=== PATIENT | female | born 2000 | race Caucasian/White ===

== ENCOUNTER → 2019-07-21 08:51 | Outpatient (CLI) | payer BC | END | disposition home or self-care (01) | LOC: D.US 08:51 | PROVIDERS: ATTEND Emergency Medicine | DX: E66.9 Obesity, unspecified (principal); R10.11 Right upper quadrant pain ==

== ENCOUNTER → 2019-07-30 14:40 | Outpatient (CLI) | payer BC ==
[2019-07-30 15:13] LABS: HEMATOCRIT 39.7 % (36.0-48.0); HEMOGLOBIN 12.7 g/dL (12-16); MCH 28.8 pg (26.0-34.0); PLATELET COUNT 255 10x3/uL (130-400); RBC 4.41 10x6/uL (4.00-5.40); RDW 14.5 % (11.5-14.5); WBC 6.2 10x3/uL (4.8-10.8)
[2019-07-30 15:56] LABS: EOSINOPHILS 1 % (0-7); LYMPHOCYTES 43 % (15-50); MONOCYTES 4 % (2-11); NEUTROPHILS 51 % (40-80); PLATELET ESTIMATE NORMAL
== END | disposition home or self-care (01) ==
LOC: D.LABREF 14:40
PROVIDERS: ATTEND Legal Medicine
DX: M79.7 Fibromyalgia (principal)

== ENCOUNTER → 2019-10-31 07:13 | Outpatient (CLI) | payer BC | END | disposition home or self-care (01) | LOC: D.NM 07:13 | PROVIDERS: ATTEND Emergency Medicine | DX: R10.9 Unspecified abdominal pain (principal); M79.7 Fibromyalgia; K21.9 Gastro-esophageal reflux disease without esophagitis; F32.9 Major depressive disorder, single episode, unspecified; E66.9 Obesity, unspecified; M06.9 Rheumatoid arthritis, unspecified; E53.8 Deficiency of other specified B group vitamins ==

== ENCOUNTER 2019-11-25 05:25 | Day surgery (SDC) | payer BC ==
[~2019-11-25] VITALS: Ht 160 cm; Wt 101.6 kg
[~2019-11-25 05:25] MED LIST: HUMIRA
[2019-11-25 05:53] LABS: BASOPHILS 0.4 % (0-2); EOSINOPHILS 3.5 % (0-7); HEMATOCRIT 41.3 % (36.0-48.0); HEMOGLOBIN 13.8 g/dL (12-16); IMMATURE GRANULOCYTES 0.3 % (0-5); LYMPHOCYTES 43.5 % (15-50); MCH 29.2 pg (26.0-34.0); MCHC 33.4 g/dL (31.0-37.0); MCV 87.5 fL (80.0-100.0); MEAN PLATELET VOLUME 10.3 fL (7.4-10.4); MONOCYTES 12.5 % (2-11); NEUTROPHILS 39.8 % (40-80); PLATELET COUNT 279 10x3/uL (130-400); RBC 4.72 10x6/uL (4.00-5.40); RDW 12.9 % (11.5-14.5); WBC 7.1 10x3/uL (4.8-10.8)
[2019-11-25 06:16] LABS: CALC OSMOLALITY 280 mosm/kg (275-300); CALCIUM 9.2 mg/dL (8.5-10.1); CARBON DIOXIDE 25.7 mmol/L (21.0-32.0); CHLORIDE - SERUM 107 mmol/L (98-107); CREATININE - SERUM 0.8 mg/dL (0.6-1.3); GLUCOSE 101 mg/dL (74-106); POTASSIUM - SERUM 3.7 mmol/L (3.5-5.1); SODIUM 142 mmol/L (136-145); UREA NITROGEN 8 mg/dL (7-18); eGFR NON AFRICAN AMERICAN > 90 mL/min (90-120)
[2019-11-25 06:29] VITALS: BP 125/71; Ht 160 cm; Wt 101.6 kg
[2019-11-25 06:35] LABS: HCG URINE NEGATIVE (NEGATIVE)
--- NOTE | 2019-11-25 07:27 | NUR ---
DR. ROMERO NOTIFIED AND REVIEWED PT'S BEHAVIOR AND ASSESSMENT RESULTS. PT IS A LOW RISK PER DR. ROMERO. DR. ROMERO STATED TO GIVE RESOURCES TO PT AT TIME OF DISCHARGE. NO FURTHER ORDERS AT THIS TIME. RESOURCES REVIEWED WITH PT AND SHE VERBALIZED UNDERSTANDING.
[2019-11-25] MEDS ORDERED: HYDROCODON-ACE1 EA10 PO (09:08)
--- NOTE | 2019-11-25 10:32 | NUR ---
1028 RETAINED SODA & WATER. HAS EATEN 1/2 OF JELLO. 1 NORCO 10/325MG PO FOR COMPLAINTS OF STABBING INCISIONAL PAIN RANKED 8/10. Wilmar JOHNS R.N.
--- NOTE | 2019-11-25 12:49 | NUR ---
1230 PT CALLED OUT STATES SHE IS NO LONGER NAUSEATED AND READY TO GO HOME. IV DC'D WITH CATH INTACT. DC INSTS REVIEWED VOICED UNDERSTANDING RELEASED IN WC.
--- NOTE | 2019-11-27 13:46 | OP ---
PATIENT NAME: MAN TRAORE MEDICAL RECORD: [id number] :98 LOCATION:[facility] ADMISSION DATE: SURGEON: KO OBRIEN MD DATE OF OPERATION: 11/25/2019 PREOPERATIVE DIAGNOSES: 1. Biliary dyskinesia with hyperactive gallbladder. 2. Fibromyalgia. 3. Gastroesophageal reflux disease. 4. Rheumatoid arthritis. 5. Major depressive disorder. 6. Obesity with a BMI of 40. POSTOPERATIVE DIAGNOSES: 1. Biliary dyskinesia with hyperactive gallbladder. 2. Fibromyalgia. 3. Gastroesophageal reflux disease. 4. Rheumatoid arthritis. 5. Major depressive disorder. 6. Obesity with a BMI of 40. PROCEDURE: Laparoscopic cholecystectomy. SURGEON: Ko Obrien MD REPORT OF PROCEDURE: The patient's abdomen was prepped and draped in sterile fashion. A cutdown was made on the superior aspect of the umbilicus, 0 Vicryls were placed in the fascia bilaterally and the fascia was incised with a 15-blade. I then bluntly entered the peritoneal cavity and placed a 12-mm Davidson port. Under direct visualization, a 5 mm trocar was placed in the epigastrium and 2 more 5-mm trocars were placed in the right subcostal region. The gallbladder was grasped and elevated. There were no signs of any inflammatory changes. The cystic artery and cystic duct were dissected free and had my critical view of safety. These structures were clipped proximally and distally and ligated in standard fashion. The gallbladder was taken off the liver bed using electrocautery and placed into the right upper quadrant. Any bleeding from the liver bed was treated with electrocautery. We irrigated out the right upper quadrant and assured there was no sign of any bleeding or bile leakage. The ports and insufflation were then removed and the gallbladder was taken out through the umbilicus. The umbilical fascia was closed with interrupted 0 Vicryls times 3. The wounds were then irrigated out with normal saline and infused with 10 mL of 0.25% Marcaine with epinephrine. The skin incisions were all closed with subcutaneous 5-0 Monocryl and dressed appropriately. COMPLICATIONS: None. CONDITION: Stable. ANESTHESIA: General endotracheal and local. BLOOD LOSS: Minimal. TRANSINT:[id number] Voice Confirmation ID: [id number] DOCUMENT ID: [id number] OPERATIVE REPORT [id number] MAN TRAORE KO OBRIEN MD at 1346 CC: MINH SKINNER MD [id number] DICTATION DATE: 11/25/19910 FILER METAL PATTERNS: 11/25/19 1130 [facility] [place] 11/25/19 [id number] [place] [address]
== END 2019-11-25 12:40 | disposition home or self-care (01) ==
LOC: D.OPS 05:25
PROVIDERS: ATTEND Surgery
DX: K82.8 Other specified diseases of gallbladder (principal); M79.7 Fibromyalgia; K21.9 Gastro-esophageal reflux disease without esophagitis; M06.9 Rheumatoid arthritis, unspecified; F32.9 Major depressive disorder, single episode, unspecified; E66.9 Obesity, unspecified; Z68.41 Body mass index [BMI] 40.0-44.9, adult; R10.9 Unspecified abdominal pain